=== PATIENT | female | born 1940 | race Hispanic/Latino ===

== ENCOUNTER 2018-01-24 06:58 | Day surgery (SDC) | payer MEDICARE, MEDICAID ==
[~2018-01-24 06:58] MED LIST: (None)1 % OU; ALENDRONATE70 MG PO; ALLEGRA-D 1212 HOUR PO; ARIXTR1 SC; COUMADIN2.5 MG PO; COUMADIN5 MG PO; FLONASE NASAL50 MCG; KENALOG15 GM/TUBE EX; LORATADINE10 M1 PO; LORTAB 7.57.5 MG PO; METFORMIN500 MG PO; PRUNELAX PO; SYNTHROID PO; TEMAZEPAM15 MG PO; TRAMADOL HCL50 MG PO; VITAMIN D3400 UNI1 PO; ZADITOR0.025 % OU; ZOCOR10 MG PO
[2018-01-24 12:24] VITALS: BP 114/61
== END 2018-01-24 11:20 | disposition home or self-care (01) ==
LOC: ENDO 06:58
PROVIDERS: ATTEND Surgery
PROC: 0DBF8ZX Excision of Right Large Intestine, Via Natural or Artificial Opening Endoscopic, Diagnostic (ICD-10-PCS; principal; 2018-01-24)
DX: Z12.11 Encounter for screening for malignant neoplasm of colon (principal); K63.5 Polyp of colon; E11.9 Type 2 diabetes mellitus without complications; I10 Essential (primary) hypertension; J44.9 Chronic obstructive pulmonary disease, unspecified; E78.5 Hyperlipidemia, unspecified

== ENCOUNTER → 2018-07-04 | Outpatient (REF) | payer MEDICARE, MEDICAID ==
[2018-07-04 10:54] LABS: URINE BILIRUBIN - DIPSTICK NEGATIVE (NEGATIVE); URINE BLOOD DIPSTICK NEGATIVE (NEGATIVE); URINE COLOR YELLOW; URINE GLUCOSE - DIPSTICK NEGATIVE (NEGATIVE); URINE KETONE NEGATIVE (NEGATIVE); URINE LEUK ESTERASE NEGATIVE (Negative); URINE NITRITE - DIPSTICK NEGATIVE (Negative); URINE PROTEIN - DIPSTICK NEGATIVE (NEG-TRACE); URINE UROBILINOGEN - DIPSTICK 0.2 E.U./dL (0.2)
[2018-07-04 11:04] LABS: URINE CLARITY CLEAR
== END | disposition home or self-care (01) ==
LOC: DI 09:52
PROVIDERS: ATTEND Nurse Practitioner
DX: R10.9 Unspecified abdominal pain (principal); M54.5 Low back pain; B96.89 Other specified bacterial agents as the cause of diseases classified elsewhere

== ENCOUNTER → 2018-11-21 | Outpatient (REF) | payer MEDICARE, MEDICAID ==
[2018-11-21 08:27] LABS: ALBUMIN 3.9 g/dL (3.2-5.0); ALKALINE PHOSPHATASE 60 u/l (38-126); ANION GAP 13 (6-22 (CALC)); BILIRUBIN, TOTAL 0.5 mg/dL (0.0-1.4); BUN 14 mg/dL (8-23); BUN/CREATININE RATIO 20 (12-20 (CALC)); CARBON DIOXIDE 25 mmol/l (22-30); CHLORIDE 105 mmol/l (95-108); CREATININE 0.7 mg/dL (0.5-1.0); GFR > 60 ML/MIN (>=60 (CALC)); GFR FOR AFR.AMER. > 60 ML/MIN (>=60 (CALC)); POTASSIUM 3.9 mmol/l (3.5-5.1); SGOT/AST 25 u/l (9-36); SODIUM 139 mmol/l (137-146); TOTAL PROTEIN 6.5 g/dL (6.3-8.2)
== END | disposition home or self-care (01) ==
LOC: LAB 07:26
PROVIDERS: ATTEND Nurse Practitioner Family
DX: E11.42 Type 2 diabetes mellitus with diabetic polyneuropathy (principal)

== ENCOUNTER → 2018-12-19 | Outpatient (REF) | payer MEDICARE, MEDICAID | END | disposition home or self-care (01) | LOC: MAMMO 12-11 09:00 | PROVIDERS: ATTEND Nurse Practitioner Family | DX: Z12.31 Encounter for screening mammogram for malignant neoplasm of breast (principal) ==

== ENCOUNTER 2022-01-19 21:56 | Observation (INO) | payer MEDICARE, MEDICAID ==
[~2022-01-19] VITALS: Ht 162.6 cm; Wt 79.5 kg
[~2022-01-19 21:56] MED LIST changes: +LEVOTHYROXIN50 MCG PO; +METFORMIN500 M2 PO; -METFORMIN500 MG PO; -SYNTHROID PO
[2022-01-19 22:27] VITALS: BP 128/80
[2022-01-19 22:46] VITALS: BP 124/78
[2022-01-19 23:00] VITALS: BP 121/69
[2022-01-19 23:16] VITALS: BP 132/86
[2022-01-19 23:27] LABS: HEMATOCRIT 42.3 % (37.0-47.0); HEMOGLOBIN 13.8 g/dl (12.0-16.0); IMMATURE GRANULOCYTES 0.2 % (0.0-5.0); MEAN CELL VOLUME 99.1 fL CALC (80.0-100.0); MEAN CORPUSCULAR HGB 32.3 pG CALC (26.0-32.0); MEAN CORPUSCULAR HGB CONC 32.6 g/dL CAL (32.0-36.0); NEUT# 2.73 thou/uL (2.00-7.15); RED BLOOD COUNT 4.27 mill/uL (4.20-5.60); RED CELL DISTRI WIDTH 12.9 % (11.5-15.5)
[2022-01-19 23:31] VITALS: BP 134/73
[2022-01-19 23:37] LABS: ALBUMIN 4.1 g/dL (3.2-5.0); ALKALINE PHOSPHATASE 65 u/l (38-126); ANION GAP 10 (6-22 (CALC)); BILIRUBIN, TOTAL 0.4 mg/dL (0.0-1.4); BUN 17 mg/dL (8-23); BUN/CREATININE RATIO 19 (12-20 (CALC)); CHLORIDE 102 mmol/l (95-108); CREATININE 0.9 mg/dL (0.5-1.0); GFR 60 ML/MIN (>=60 (CALC)); GFR FOR AFR.AMER. > 60 ML/MIN (>=60 (CALC)); POTASSIUM 4.1 mmol/l (3.5-5.1); SGOT/AST 36 u/l (9-36); SODIUM 137 mmol/l (137-146); TOTAL PROTEIN 6.8 g/dL (6.3-8.2)
[2022-01-19 23:38] LABS: ACT PARTIAL THROMBO TIME 31.2 SECONDS (20.0-32.5); CARBON DIOXIDE 29 mmol/l (22-30)
[2022-01-19 23:45] VITALS: BP 131/96
[2022-01-19 23:48] LABS: MYOGLOBIN 85 ng/mL (0 - 62)
[2022-01-19 23:49] LABS: INTERNATIONAL NORMALIZED RATIO 1.3 RATIO (0.7-1.3); PROTHROMBIN TIME 13.4 SECONDS (9.0-12.5)
[2022-01-20 01:32] VITALS: BP 143/80
[2022-01-20 02:12] VITALS: BP 159/80
[2022-01-20 02:35] LABS: URINE BILIRUBIN - DIPSTICK NEGATIVE (NEGATIVE); URINE BLOOD DIPSTICK TRACE-INTACT (NEGATIVE); URINE COLOR YELLOW; URINE GLUCOSE - DIPSTICK NEGATIVE (NEGATIVE); URINE KETONE NEGATIVE (NEGATIVE); URINE LEUK ESTERASE NEGATIVE (NEGATIVE); URINE PROTEIN - DIPSTICK NEGATIVE (NEG-TRACE); URINE UROBILINOGEN - DIPSTICK 0.2 E.U./dL (0.2)
[2022-01-20 02:36] LABS: URINE NITRITE - DIPSTICK NEGATIVE (Negative)
[2022-01-20 04:10] VITALS: BP 126/68
[2022-01-20 07:37] VITALS: BP 121/76
[2022-01-20 15:00] VITALS: BP 140/68
[2022-01-20] MEDS ORDERED: ARNUITY EL50 MCG/ACT IN (15:52)
[2022-01-20] MEDS ORDERED: SLOW-MAG PO (15:52)
[2022-01-20] MEDS ORDERED: PROLIA60 MG/ML SC (15:54)
[2022-01-20] MEDS ORDERED: ZOLPIDEM5 M1 PO (15:55)
[2022-01-20] MEDS ORDERED: VESICARE5 M1 PO (15:56)
[2022-01-20] MEDS ORDERED: MIRALAX17 GM PO (15:56)
[2022-01-20] MEDS ORDERED: XARELTO20 MG PO (15:57)
[2022-01-20] MEDS ORDERED: GABAPENTIN100 MG PO (15:57)
[2022-01-20] MEDS ORDERED: TRAZODONE50 MG PO (15:58)
[2022-01-20] MEDS ORDERED: WELLBUTRIN150 M1 PO (15:59)
[2022-01-20 18:58] VITALS: BP 115/53
[2022-01-21 00:03] VITALS: BP 95/54
[2022-01-21 04:43] VITALS: BP 108/72
[2022-01-21 05:37] LABS: HEMATOCRIT 42.5 % (37.0-47.0); HEMOGLOBIN 14.4 g/dl (12.0-16.0); MEAN CELL VOLUME 99.1 fL CALC (80.0-100.0); MEAN CORPUSCULAR HGB 33.6 pG CALC (26.0-32.0); MEAN CORPUSCULAR HGB CONC 33.9 g/dL CAL (32.0-36.0); NEUT# 2.52 thou/uL (2.00-7.15); RED BLOOD COUNT 4.29 mill/uL (4.20-5.60); RED CELL DISTRI WIDTH 13.2 % (11.5-15.5)
[2022-01-21 05:57] LABS: ALBUMIN 3.9 g/dL (3.2-5.0); ALKALINE PHOSPHATASE 65 u/l (38-126); ANION GAP 11 (6-22 (CALC)); BILIRUBIN, TOTAL 0.4 mg/dL (0.0-1.4); BUN 15 mg/dL (8-23); BUN/CREATININE RATIO 19 (12-20 (CALC)); CALCULATED LDLCHOLESTEROL 43 mg/dL (62-129 (CALC)); CARBON DIOXIDE 25 mmol/l (22-30); CHLORIDE 107 mmol/l (95-108); CREATININE 0.8 mg/dL (0.5-1.0); GFR > 60 ML/MIN (>=60 (CALC)); GFR FOR AFR.AMER. > 60 ML/MIN (>=60 (CALC)); HDL CHOLESTEROL 61 mg/dL (>=40); MAGNESIUM 2.2 mg/dL (1.6-2.3); POTASSIUM 4.2 mmol/l (3.5-5.1); SGOT/AST 32 u/l (9-36); SODIUM 138 mmol/l (137-146); TOTAL CHOLESTEROL 122 mg/dl (0-199); TOTAL PROTEIN 6.6 g/dL (6.3-8.2); TOTAL TRIGLYCERIDES 94 mg/dl (30-149); VLDL CHOLESTROL 19 mg/dl (0-48 (CALC))
[2022-01-21] MEDS ORDERED: ZOLPIDEM5 M1 PO (07:26)
[2022-01-21 07:34] VITALS: BP 141/79
== END 2022-01-21 12:05 | disposition home or self-care (01) ==
LOC: ED 21:56 → ED-I 01-20 01:21 → ED 01-20 01:29 → MS2 01-20 01:30
PROVIDERS: Family Medicine; Nurse Practitioner; ADMIT Internal Medicine; ATTEND Internal Medicine
DX: R41.0 Disorientation, unspecified (principal); R53.83 Other fatigue; R25.1 Tremor, unspecified; I10 Essential (primary) hypertension; E11.40 Type 2 diabetes mellitus with diabetic neuropathy, unspecified; I48.91 Unspecified atrial fibrillation; E78.5 Hyperlipidemia, unspecified; N31.9 Neuromuscular dysfunction of bladder, unspecified; F32.A Depression, unspecified; E03.9 Hypothyroidism, unspecified; Z79.84 Long term (current) use of oral hypoglycemic drugs; Z79.01 Long term (current) use of anticoagulants; Z79.899 Other long term (current) drug therapy
CPT/HCPCS: J2060; Q9967

== ENCOUNTER 2023-02-12 10:39 | Inpatient (IN) | payer MEDICARE, MEDICAID ==
[~2023-02-12] VITALS: Ht 162.6 cm; Wt 73.0 kg
[2023-02-12] VITALS (69 sets, daily range): BP systolic 76–120; BP diastolic 55–87
[~2023-02-12 10:39] MED LIST changes: +ARNUITY EL50 MCG/ACT IN; +GABAPENTIN100 MG PO; +MIRALAX17 GM PO; +PROLIA60 MG/ML SC; +SLOW-MAG PO; +TRAZODONE50 MG PO; +VESICARE5 M1 PO; +WELLBUTRIN150 M1 PO; +XARELTO20 MG PO; +ZOLPIDEM5 M1 PO
[2023-02-12 11:08] LABS: BASO% 0.4 % (0-3); EOS% 2.2 % (0-8); HEMATOCRIT 41.6 % (37.0-47.0); HEMOGLOBIN 13.5 g/dl (12.0-16.0); IMMATURE GRANULOCYTES 0.2 % (0.0-5.0); LYMPH% 41.7 % (15-41); MEAN CORPUSCULAR HGB 31.5 pG CALC (26.0-32.0); MEAN CORPUSCULAR HGB CONC 32.5 g/dL CAL (32.0-36.0); MONO% 7.5 % (2-13); NEUT# 2.17 thou/uL (2.00-7.15); RED BLOOD COUNT 4.29 mill/uL (4.20-5.60); RED CELL DISTRI WIDTH 14.3 % (11.5-15.5)
[2023-02-12 11:14] LABS: ALKALINE PHOSPHATASE 77 u/l (38-126); ANION GAP 10 (6-22 (CALC)); BILIRUBIN, TOTAL 0.5 mg/dL (0.02-1.3); BUN 26 mg/dL (8-23); BUN/CREATININE RATIO 27 (12-20 (CALC)); CARBON DIOXIDE 25 mmol/l (22-30); CHLORIDE 107 mmol/l (95-108); GFR FOR AFR.AMER. > 60 ML/MIN (>=60 (CALC)); GFR OTHER RACES 53 ML/MIN (>=60 (CALC)); SGOT/AST 32 u/l (9-36); SODIUM 138 mmol/l (137-146); TOTAL PROTEIN 6.7 g/dL (6.3-8.2)
[2023-02-12] MEDS ORDERED: PLAVIX75 MG PO (11:49)
[2023-02-12] MEDS ORDERED: MYRBETRIQ25 MG PO (11:51)
[2023-02-12 11:55] LABS: TSH, 3RD GENERATION 1.34 uIU/mL (0.47 - 4.68)
[2023-02-12 17:22] LABS: URINE BILIRUBIN - DIPSTICK NEGATIVE (NEGATIVE); URINE BLOOD DIPSTICK NEGATIVE (NEGATIVE); URINE COLOR YELLOW; URINE GLUCOSE - DIPSTICK NEGATIVE (NEGATIVE); URINE KETONE NEGATIVE (NEGATIVE); URINE LEUK ESTERASE NEGATIVE (NEGATIVE); URINE PROTEIN - DIPSTICK NEGATIVE (NEG-TRACE); URINE SPECIFIC GRAVITY <=1.005; URINE UROBILINOGEN - DIPSTICK 0.2 E.U./dL (0.2)
[2023-02-12 17:23] LABS: URINE NITRITE - DIPSTICK NEGATIVE (Negative)
[2023-02-13] VITALS (59 sets, daily range): BP systolic 96–137; BP diastolic 56–78
[2023-02-13 06:23] LABS: HEMATOCRIT 38.5 % (37.0-47.0); HEMOGLOBIN 12.3 g/dl (12.0-16.0); MEAN CELL VOLUME 98.5 fL CALC (80.0-100.0); MEAN CORPUSCULAR HGB 31.5 pG CALC (26.0-32.0); MEAN CORPUSCULAR HGB CONC 31.9 g/dL CAL (32.0-36.0); RED BLOOD COUNT 3.91 mill/uL (4.20-5.60); RED CELL DISTRI WIDTH 14.7 % (11.5-15.5)
[2023-02-13 06:35] LABS: ANION GAP 6 (6-22 (CALC)); BUN 15 mg/dL (8-23); BUN/CREATININE RATIO 21 (12-20 (CALC)); CALCULATED LDLCHOLESTEROL 59 mg/dL (62-129 (CALC)); CARBON DIOXIDE 26 mmol/l (22-30); CHLORIDE 111 mmol/l (95-108); CHOLESTEROL HDL RATIO 2.5 (<4.4 (CALC)); CREATININE 0.7 mg/dL (0.5-1.0); GFR FOR AFR.AMER. > 60 ML/MIN (>=60 (CALC)); GFR OTHER RACES > 60 ML/MIN (>=60 (CALC)); HDL CHOLESTEROL 52 mg/dL (39.0-59.0); POTASSIUM 4.1 mmol/l (3.5-5.1); SODIUM 139 mmol/l (137-146); TOTAL CHOLESTEROL 131 mg/dl (0-199); TOTAL TRIGLYCERIDES 96 mg/dl (0-149); VLDL CHOLESTROL 19 mg/dl (0-48 (CALC))
[2023-02-13] MEDS ORDERED: LOPRESSOR25 MG PO (13:01)
== END 2023-02-13 14:30 | disposition home or self-care (01) | DRG 310 ==
LOC: ED 10:39 → ED-I 13:32 → ED 13:45 → ED-I 13:46 → ICU 15:54
PROVIDERS: Family Medicine; ADMIT Internal Medicine; ATTEND Internal Medicine
DX: I48.0 Paroxysmal atrial fibrillation (principal); R07.9 Chest pain, unspecified; I10 Essential (primary) hypertension; E11.40 Type 2 diabetes mellitus with diabetic neuropathy, unspecified; E78.5 Hyperlipidemia, unspecified; E03.9 Hypothyroidism, unspecified; G47.33 Obstructive sleep apnea (adult) (pediatric); F32.A Depression, unspecified; Z79.84 Long term (current) use of oral hypoglycemic drugs; Z95.818 Presence of other cardiac implants and grafts; Z79.02 Long term (current) use of antithrombotics/antiplatelets
CPT/HCPCS: J1650